=== PATIENT | male | born 1965 | race Caucasian/White ===

== ENCOUNTER → 2016-06-27 | Outpatient (CLI) | payer BC | END | disposition home or self-care (01) | LOC: YCFC.O 10:53 | PROVIDERS: ATTEND Nurse Practitioner Family | DX: L02.91 Cutaneous abscess, unspecified (principal) ==

== ENCOUNTER → 2016-07-19 | Outpatient (CLI) | payer BC, SELFPAY ==
--- NOTE | 2016-07-19 15:40 | RAD ---
Two-view right shoulder. Indication: RIGHT SHOULDER PAIN Comparison: None. Impression: A.C. and glenohumeral joint alignment normal without fracture or dislocation. Minimal AC joint osteoarthritis. Electronically signed by: Christ Albarran MD 07/19/2016 3:39 PM CDT
== END | disposition home or self-care (01) ==
LOC: YCFC.O 14:21
PROVIDERS: ATTEND Nurse Practitioner Family
DX: M25.519 Pain in unspecified shoulder (principal)

== ENCOUNTER → 2016-08-08 | Outpatient (CLI) | payer BC, SELFPAY ==
--- NOTE | 2016-08-08 16:55 | MRI ---
EXAM DESCRIPTION: MRI right shoulder CLINICAL HISTORY: Right shoulder pain COMPARISON: None. TECHNIQUE: Multiplanar, multisequence MR images of the right shoulder FINDINGS: Severe acromioclavicular osteoarthritis with periarticular osseous irregularity and cystic change with edema throughout the distal clavicle. Osteophytes indent the myotendinous junction supraspinatus. Mild anterior downsloping of the acromion. Supraspinatus tendinosis with bursal surface edema. Normal muscle volume and signal, grade 0 Infraspinatus tendinosis with tendon thickening and increased signal. No tendon tear. Normal muscle volume with grade 1 fatty infiltration Teres minor tendon intact. Muscle volume normal with minimal fatty streaking Subscapularis insertional tendinosis with low-grade insertional partial tear of the cranial tendon. Normal muscle volume and signal Biceps tendon is normal in the bicipital groove. Short segment intra-articular tendinosis as the tendon enters the joint. Labral anchor demonstrates mild degenerative increased signal without labral detachment. No other evidence of labral tear. There is a small sublabral cyst in the inferior glenoid measuring about 3 mm No high-grade chondrosis or focal osteochondral lesion of the glenohumeral joint. Minimal joint fluid without synovitis or intra-articular body IMPRESSION: Severe acromioclavicular osteoarthritis. Supraspinatus and infraspinatus tendinosis. Subscapularis tendinosis with low-grade interstitial insertional tear of the cranial tendon Short segment intra-articular impingement tendinosis of the long head biceps Electronically signed by: Elie Low MD 08/08/2016 4:54 PM CDT
== END | disposition home or self-care (01) ==
LOC: MRI 10:55
PROVIDERS: ATTEND Nurse Practitioner Family
DX: M19.011 Primary osteoarthritis, right shoulder (principal)

== ENCOUNTER → 2018-07-04 | Outpatient (CLI) | payer BC ==
--- NOTE | 2018-07-04 13:04 | RAD ---
EXAM DESCRIPTION: Pelvis CLINICAL HISTORY: 52 years Male, PAIN IN RIGHT HIP COMPARISON: None. FINDINGS: AP pelvis. No fracture. No bone lesion. Normal bony mineralization. Hip joints and SI joints and pubic symphysis normal. IMPRESSION: Negative Electronically signed by: Anurag Perez MD 07/04/2018 1:01 PM [facility]
--- NOTE | 2018-07-04 13:05 | RAD ---
EXAM DESCRIPTION: Hip,Right 2 Views CLINICAL HISTORY: 52 years, Male, PAIN IN RIGHT HIP COMPARISON: None TECHNIQUE: AP and frog leg lateral views of the hip FINDINGS: Two-view right hip shows no fracture or bone lesion. There is no joint space abnormality observed. IMPRESSION: 1. Normal study Electronically signed by: Anurag Perez MD 07/04/2018 1:[address] [facility]
--- NOTE | 2018-07-04 19:50 | MRI ---
EXAM DESCRIPTION: Lumbar Spine w/o Contrast : Magnetic Resonance Imaging. CLINICAL HISTORY: LUMBAR DISC DISPLACEMENT COMPARISON: Radiographs of the hip and pelvis on the same visit. TECHNIQUE: Multiplanar, multiple standard sequences, non contrast MRI, lumbar spine. FINDINGS: L5-S1: Disc desiccation and Modic type II endplate reactive changes with severe disc space loss and retrolisthesis 2 mm. Anterior disc bulging with spurs. Posterior broad-based 5 mm disc bulge abutting the thecal sac. Disc bulge below the disc space effacing the right subarticular recess and possibly displacing the descending right S1 nerve posteriorly. AP canal diameter 12 mm. Disc osteophyte complex extending bilaterally into the foramina with bilateral foraminal stenosis more right than left. Right facet arthrosis and hypertrophy with the flavum ligament. L4-L5: Disc desiccation with disc space maintained. Posterior midline tiny bulge abutting the thecal sac. AP canal diameter 13 mm. Right facet arthrosis and hypertrophy with the bilateral flavum ligaments and bilateral moderate foraminal narrowing. L3-L4: Normal signal in the disc with disc space maintained. Posterior elements unremarkable. Left foraminal hypertrophic endplate changes resulting in foraminal narrowing moderate and minimal on the right. L2-L3: Normal signal in the disc with disc space maintained. Right bony foraminal moderate hypertrophic changes resulting in moderate right foraminal narrowing and mild left foraminal narrowing. Posterior elements unremarkable with no canal stenosis. L1-L2: Normal signal in the disc with disc space maintained. Posterior elements unremarkable. Canal and foramina are patent. Conus terminates just above the disc space. T12-L1: Normal signal in the disc with disc space maintained. Posterior elements unremarkable. Canal and foramina are patent. No significant scoliosis. Paravertebral soft tissues negative.. Otherwise normal marrow signal in the remaining vertebral bodies and the posterior elements. Vertebral bodies are not compressed at any level. IMPRESSION: 1. Moderate spondylosis L5-S1 involving the entire disc with severe disc space loss and retrolisthesis 2 mm. Disc bulge abutting the thecal sac and effacing the right subarticular recess with possible displacement of the right S1 nerve. Correlate for radiculopathy. Moderate canal narrowing. Bilateral foraminal stenosis, correlate for bilateral L5 radiculopathy. 2. Mild to moderate canal narrowing at L4-L5. Bilateral moderate foraminal narrowing. Also bilateral foraminal narrowing at L3-4 and secondary to bony endplate hypertrophic changes. Electronically signed by: Percy Ron MD 07/04/2018 7:47 PM [employer]
== END ==
LOC: RAD 08:09
PROVIDERS: ATTEND Orthopaedic Surgery
DX: M47.897 Other spondylosis, lumbosacral region (principal); M51.26 Other intervertebral disc displacement, lumbar region; M25.551 Pain in right hip

== ENCOUNTER → 2018-11-04 | Outpatient (CLI) | payer BC | LOC: YCFC.O 08:58 | PROVIDERS: ATTEND Nurse Practitioner Family | DX: Z01.818 Encounter for other preprocedural examination (principal); E11.65 Type 2 diabetes mellitus with hyperglycemia ==

== ENCOUNTER → 2018-12-16 | Outpatient (CLI) | payer BC | LOC: LAB.O 09:49 | PROVIDERS: ATTEND Nurse Practitioner | DX: E11.65 Type 2 diabetes mellitus with hyperglycemia (principal) ==

== ENCOUNTER → 2019-03-10 | Outpatient (CLI) | payer BC | LOC: LAB.O 15:17 | PROVIDERS: ATTEND Nurse Practitioner | DX: E11.65 Type 2 diabetes mellitus with hyperglycemia (principal) ==

== ENCOUNTER → 2019-04-10 | Outpatient (CLI) | payer BC | LOC: LAB.O 15:02 | PROVIDERS: ATTEND Nurse Practitioner | DX: Z01.818 Encounter for other preprocedural examination (principal) ==

== ENCOUNTER → 2020-04-23 | Outpatient (CLI) | payer BC | LOC: YCFC.O 15:36 | PROVIDERS: ATTEND Nurse Practitioner | DX: Z03.818 Encounter for observation for suspected exposure to other biological agents ruled out (principal); Z20.828 Contact with and (suspected) exposure to other viral communicable diseases ==